=== PATIENT | female | born 1975 | race Caucasian/White ===

== ENCOUNTER 2019-05-23 01:31 | Day surgery (SDC) | payer OTHER, SELFPAY ==
[2019-05-22 12:13] VITALS: BMI 33.9
--- NOTE | 2019-05-22 13:38 | P.HP_ITS ---
H&P: HPI History of Present Illness Chief complaint: missed AB Narrative: Radha Palma is a 44 year old female Who is in the 1st trimester with an incomplete AB. She has had serial HSG levels which [place] current no demonstrable normal . Risks and benefits of this procedure reviewed in full. She had all questions answered. 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] triamterene-hydrochlorothiazid 1 cap PO DAILY 05/22/19 05/22/19 History Allergies Allergy/AdvReac Type Severity Reaction Status Date / Time No Known Allergies Allergy Verified 05/22/19 12:14 Exam Const: General: no acute distress Eyes: General: appearance normal, both eyes and all related structures Neck: Neck: supple and no JVD Thyroid: thyroid normal Resp: Effort & Inspection: normal respiratory effort Auscultation: clear to auscultation bilaterally Cardio: Rate: regular rate Rhythm: regular rhythm GI: Inspection: non-distended GI Palp: Yes Soft to palpation, No Tenderness to palpation present (GI) and No Guarding due to palpation present (GI) Auscultation: normal bowel sounds : General: Yes bladder normal to palpation External Female Exam: normal external appearance Speculum Exam - Vagina: normal vaginal discharge and No vaginal bleeding Speculum Exam - Cervix: nontender Bimanual exam- vagina & uterus: bladder normal to palpation and No Cervical tenderness present OB/external & speculum: No vaginal bleeding Skin: General skin exam: no rashes or lesions noted Extrem: General: normal to inspection and no edema Psych: Mental Status: mental status grossly normal Affect: normal affect Assessment and Plan Additional Plan impression: 1St trimester missed AB Plan: Suction dilatation curettage
--- NOTE | 2019-05-23 06:47 | WPDHPUPDATE1 ---
History and Physical Update Update Date/Time: 05/23/19 06:47 History and Physical has been reviewed, including an updated exam of the patient. There are NO changes in the patient's condition. Risks, benefits, and alternatives have been discussed and questions answered. Patient agrees to proceed with procedure.
[2019-05-23 08:34] VITALS: BP 137/85; PULSE 76; RESP 18; TEMP 36.4; O2SAT 100
[2019-05-23] MEDS: LACTATED RINGERS 1,000 ML 30 ML IV CONT (09:20)
[2019-05-23 09:41] LABS: Blood Urea Nitrogen 15 mg/dL (7-17); Calcium 9.1 mg/dL (8.4-10.2); Carbon Dioxide 24 mmol/L (22-30); Chloride 102 mmol/L (98-107); Estimated CRCL calculation 152 ml/min; Estimated Glomerular Filt Rate > 60; Glucose 98 mg/dL (65-105); Potassium 3.9 mmol/L (3.4-5.0); Sodium 135 mmol/L (137-145)
--- NOTE | 2019-05-23 09:46 | P.PNAN_ITS ---
Anes - Initial Pre Proc Eval Procedure: Operation Date: 05/23/19 10:15 Proposed Procedures p Suction Dilatation and Curettage - Otoniel Honeycutt MD Date/Time: 05/23/19 09:46 Surgeon: Otoniel Honeycutt MD Pre Op Diagnosis: missed AB Patient Data Age: 44 Gender: F Height: 5 ft 8 in Weight: 102.9 kg Last Vital Signs Temp 97.6 F 05/23/19 08:34 Pulse 76 05/23/19 08:34 Resp 18 05/23/19 08:34 BP 137/85 05/23/19 08:34 Pulse Ox 100 05/23/19 08:34 Allergies Allergy/AdvReac Type Severity Reaction Status Date / Time No Known Allergies Allergy Verified 05/22/19 12:14 Home Medications Medication Instructions Recorded Confirmed Type no.15-bzut-LD-dha 1 cap PO DAILY 05/22/19 05/22/19 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] triamterene-hydrochlorothiazid 1 cap PO DAILY 05/22/19 05/22/19 History hydrocodone-acetaminophen [Dupuyer] 1 tablet PO Q4H PRN #20 tablet 05/23/19 Rx Laboratory Tests 05/23/19 08:58 Sodium 135 mmol/L L mmol/L (137-145) Potassium 3.9 mmol/L mmol/L (3.4-5.0) Chloride 102 mmol/L mmol/L (98-107) Carbon Dioxide 24 mmol/L mmol/L (22-30) BUN 15 mg/dL mg/dL (7-17) Creatinine 0.50 mg/dL L mg/dL (0.7-1.0) Estim Creat Clear Calc 152 ml/min ml/min Estimated GFR > 60 (59 - ) Glucose 98 mg/dL mg/dL (65-105) Calcium 9.1 mg/dL mg/dL (8.4-10.2) Patient hx anesthesia problems: none Family hx anesthesia problems: none [facility] Past Medical History Medical History (Updated 05/23/19 @ 09:24 by Sergio Barcenas MD) Obesity Anes - Eval Final PreProcedure Day of Procedure 05/23/19 09:46 Patient weight: obese Heart: regular rate and rhythm Lungs: clear to auscultation Airway: Mallampati scale class II Neurological: alert and oriented Last oral intake: >/= 8 hours ASA classification: II Emergent: no Anesthetic plan: proceed Anesthesia type and monitoring: general GIVS and standard monitoring Informed Consent: The patient's anesthetic plan and its attendant risks and benefits were discussed with the patient/family/POA. Questions were solicited and answers provided to the satisfaction of the patient/family/POA.
[2019-05-23] MEDS: KETOROLAC 30 MG/ML VIAL (*BKC) IV PUSH (10:00)
--- NOTE | 2019-05-23 10:09 | SUR.OPER ---
ebl=50ml
[2019-05-23 10:16] VITALS: BP 127/65; PULSE 73; RESP 15; TEMP 36.4; O2SAT 97
--- NOTE | 2019-05-23 10:24 | PM.PROC ---
Procedure Note - Detailed Date of procedure: 05/23/19 Pre-op diagnosis: missed AB Surgeon: Otoniel Honeycutt MD Postop diagnosis: Missed AB Procedure: Suction dilatation curettage EBL: 25cc Findings: Products of conception Complications: None Description of the procedure: The patient was prepped and draped in the normal sterile fashion and placed in the dorsal lithotomy position. Under excellent IV sedation weighted speculum placed in posterior fornix of vagina. Anterior lip of the cervix grasped with single-tooth tenaculum. 2.5cc of 1% xylocaine anesthesia placed at 2, 4, 6, 8, of the cervix. The uterus sounded to 10cm. Serial dilatation with fragmented out performed. This was followed by passes the 9. Suction curette removing a moderate small amount of tissue. When a good grating sound was heard. There were none no further tissue could be removed. The instruments removed. All sponge, needle, instrument counts were correct. There were no immediate complications. The patient went to recovery in satisfactory condition
[2019-05-23 10:45] VITALS: BP 117/73; PULSE 65; RESP 16
[2019-05-23 11:15] VITALS: BP 127/81; PULSE 73; RESP 18
[2019-05-23 11:29] VITALS: BP 136/85; PULSE 74; RESP 16; TEMP 36.7; O2SAT 99
== END 2019-05-23 11:35 | disposition home or self-care (01) ==
PROVIDERS: Anesthesiology; Visit Provider Obstetrics & Gynecology
PROC: (CPT 59820; principal; 2019-05-23 10:15)
DX: O02.1 Missed abortion (principal)
CPT/HCPCS: 59820; 36415; 80048; 86850; 86900; 86901; 88305; 90384; A9270; J0131; J1100; J1885; J2250; J2405; J2704; J2790; J3010; J7120

== ENCOUNTER 2020-04-09 11:46 | Outpatient (CLI) | payer OTHER, SELFPAY ==
--- NOTE | ~2020-04-09 | XR_ITS ---
XR lumbar spine 2-3V DATE: 04/09/2020 12:13 INDICATION: Chronic low back pain TECHNIQUE: AP, lateral, coned lateral lumbosacral views COMPARISON: None FINDINGS: There is mild dextro scoliosis of the lumbar spine. No fracture or bone destruction or spondylolisthesis. The included lower thoracic and lumbar pedicles are intact. There is prominent degenerative spurring in the lower thoracic spine and to a lesser extent the lumba r spine. Degenerative disc disease is most pronounced at the L3-4 and L4-5 levels on the left. The sacroiliac joints appear normal. IMPRESSION: Mild dextro scoliosis Degenerative changes of the lower thoracic and lumbar spine Reviewed, dictated and finalized at location A. 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
== END 2020-04-09 11:47 | disposition home or self-care (01) ==
LOC: ANHIMG 11:53
PROVIDERS: Visit Provider Chiropractor
DX: M51.34 Other intervertebral disc degeneration, thoracic region (principal); M51.36 Other intervertebral disc degeneration, lumbar region
CPT/HCPCS: 72100

== ENCOUNTER 2021-01-25 09:28 | Outpatient (CLI) | payer OTHER, SELFPAY ==
--- NOTE | ~2021-01-25 | MM_ITS ---
EXAMINATION: MM screening winifred BI w betty HISTORY: Screening mammogram TECHNIQUE: Craniocaudal and mediolateral oblique 3-D tomosynthesis images were obtained and synthetic 2-D images were generated. CAD analysis was submitted and interpreted. COMPARISON: None, baseline BREAST PARENCHYMAL COMPOSITION: There are scattered areas of fibroglandular density. FINDINGS: RIGHT BREAST: There is focal asymmetry in the anterior third of the slightly outer breast. LEFT BREAST: There is no evidence of suspicious mass, calcification, or architectural distortion to s uggest malignancy. IMPRESSION: 1. Right breast focal asymmetry. 2. Additional mammographic views and possible breast ultrasound are recommended to evaluate for malig petra and establish a baseline given that this is the first mammographic examination. BI-RADS Category 0: Incomplete: Needs additional imaging evaluation. Reviewed, dictated and finalized at location A. SPINNER IMPRESSION: 1. Right breast focal asymmetry. 2. Additional mammographic views and possible breast ultrasound are recommended to evaluate for malignancy and establish a baseline given that this is the fir st mammographic examination. BI-RADS Category 0: Incomplete: Needs additional imaging evaluation.
== END 2021-01-25 09:29 | disposition home or self-care (01) ==
LOC: ANHIMG 09:30
PROVIDERS: Visit Provider Obstetrics & Gynecology
DX: Z12.31 Encounter for screening mammogram for malignant neoplasm of breast (principal); R92.8 Other abnormal and inconclusive findings on diagnostic imaging of breast
CPT/HCPCS: 77063; 77067

== ENCOUNTER 2021-02-15 12:14 | Outpatient (CLI) | payer OTHER, SELFPAY ==
--- NOTE | ~2021-02-15 | MMUS_ITS ---
EXAMINATION: MM diagnostic winifred RT w betty, US breast RT limited HISTORY: Focal asymmetry of the right breast on screening mammogram TECHNIQUE: Additional 3-D tomosynthesis images of the right breast were performed and synthetic 2-D i mages were generated. CAD analysis was submitted and interpreted. High resolution limited right breas t ultrasound was performed. COMPARISON: 01/25/2021 FINDINGS: MAMMOGRAPHIC FINDINGS: There is persistent focal asymmetry in the anterior third of the slightly outer breast. No suspicious mass, calcification, or architectural distortion are identified. ULTRASOUND: There is no evidence of focal abnormal solid or cystic mass in the vicinity of the mammographic findi ng in question. IMPRESSION: 1. Probably benign focal asymmetry right breast. 2. Recommend 6 month follow-up right diagnostic mammogram and possible ultrasound. BI-RADS category 3, probably benign findings. Reviewed, dictated and finalized at location A. 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 Probably benign focal asymmetry right breast. 2. Recommend 6 month follow-up right diagnostic mammogram and possible ultrasou nd. BI-RADS category 3, probably benign findings.
== END 2021-02-15 12:15 | disposition home or self-care (01) ==
PROVIDERS: Visit Provider Obstetrics & Gynecology
DX: R92.8 Other abnormal and inconclusive findings on diagnostic imaging of breast (principal)
CPT/HCPCS: 76642; 77061; 77065; G0279

== ENCOUNTER 2021-10-20 11:19 | Outpatient (CLI) | payer OTHER, SELFPAY ==
--- NOTE | ~2021-10-20 | MMUS_ITS ---
EXAMINATION: MM diagnostic winifred RT w betty, US breast RT limited HISTORY: Six-month follow-up of probably benign focal asymmetry of right breast TECHNIQUE: ML, MLO and CC 3-D tomosynthesis images of the right breast were performed and synthetic 2 -D images were generated. CAD analysis was submitted and interpreted. High resolution upper outer and lower-outer quadrant and subareolar right breast ultrasound was performed. COMPARISON: 02/15/2021 diagnostic right mammogram and limited right breast ultrasound 01/25/2021 bilateral screening mammogram BREAST PARENCHYMAL COMPOSITION: There are scattered areas of fibroglandular density. FINDINGS: MAMMOGRAPHIC FINDINGS: No interval suspicious mass, architectural distortion, malignant calcification, skin thickening or re traction or significant new or developing density is noted since 01/25/2021. ULTRASOUND: No suspicious mass or shadowing or other significant sonographic finding is noted in the upper and lo wer outer quadrants or subareolar area. IMPRESSION: 1. No mammographic evidence of malignancy 2. Routine mammographic screening is recommended BI-RADS Category 1: Negative Reviewed, dictated and finalized at location A. IMPRESSION: 1. No mammographic evidence of malignancy 2. Routine mammographic screening is recommended BI-RADS Category 1: Negative
== END 2021-10-20 11:20 | disposition home or self-care (01) ==
LOC: ANHIMG 11:20
PROVIDERS: Visit Provider Obstetrics & Gynecology
DX: R92.8 Other abnormal and inconclusive findings on diagnostic imaging of breast (principal)
CPT/HCPCS: 76642; 77061; 77065; G0279

== ENCOUNTER 2023-02-19 14:51 | Outpatient (CLI) | payer OTHER, SELFPAY ==
--- NOTE | ~2023-02-19 | MM_ITS ---
EXAMINATION: MM screening winifred BI w betty HISTORY: Screening mammogram TECHNIQUE: Craniocaudal and mediolateral oblique 3-D tomosynthesis images were obtained and synthetic 2-D images were generated. CAD analysis was submitted and interpreted. COMPARISON: 10/20/2021 diagnostic right mammogram and limited right breast ultrasound examination 02/15/2021 diagnostic right mammogram and limited right breast ultrasound 01/25/2021 bilateral screening mammogram BREAST PARENCHYMAL COMPOSITION: There are scattered areas of fibroglandular density. FINDINGS: There is no evidence of suspicious mass, calcification, or architectural distortion to sugg est malignancy in either breast. There has been no suspicious interval change. IMPRESSION: 1. No mammographic evidence of malignancy. 2. Recommend routine screening mammography in one year. BI-RADS Category 1: Negative Reviewed, dictated and finalized at location A. 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
== END 2023-02-19 14:52 | disposition home or self-care (01) ==
LOC: ANHIMG 14:56
PROVIDERS: Visit Provider Obstetrics & Gynecology
DX: Z12.31 Encounter for screening mammogram for malignant neoplasm of breast (principal)
CPT/HCPCS: 77063; 77067

== ENCOUNTER 2024-04-11 14:11 | Outpatient (CLI) | payer OTHER, SELFPAY ==
--- NOTE | ~2024-04-11 | MM_ITS ---
EXAMINATION: MM screening winifred BI w betty HISTORY: Screening TECHNIQUE: Craniocaudal and mediolateral oblique 3-D tomosynthesis images were obtained and synthetic 2-D images were generated. CAD analysis was submitted and interpreted. COMPARISON: Comparison to multiple prior studies sequentially, with oldest reviewed study dated 01/04. BREAST PARENCHYMAL COMPOSITION: Not dense: There are scattered areas of fibroglandular density. FINDINGS: There is no evidence of suspicious mass, calcification, or architectural distortion to sugg est malignancy in either breast. There has been no suspicious interval change. IMPRESSION: 1. No mammographic evidence of malignancy. 2. Recommend routine screening mammography in one year. BI-RADS Category 1: Negative Reviewed, dictated and finalized at location B. LABORER
--- OUTSIDE RECORDS SUMMARY | 2024-04-11 14:17 | XMS_ITS | Encounter Summary ---
[facility] Organization [facility] Address 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
--- OUTSIDE RECORDS SUMMARY | 2024-04-11 14:17 | XMS_ITS | Patient Health Summary ---
Author Organization [facility] Address [address] [facility] [address] [place] [address] Care Team Providers Care Turbo Operator Name Role Phone Rizwan Forbes MD Primary Care Provider + Note from [facility],non-owned Affiliates and Associated Physician Practices is amultiple site organization consisting of ambulatory clinics and hospital sitesin [place], [place], [place]. This disclosure is being madepursuant to the Care Everywhere program and may not contain all information available regarding this patient. Last updated 17.[facility] [employer] Allergies No known active allergies Medications * Be aware that medications may not be up to date on this document. Alwaysverify current medications with the patient. * albuterol HFA (ProAir HFA) 108 (90 Base) MCG/ACT inhaler(Started 08/04/2023) Inhale 2 (two) puffs by mouth every 4 hours as needed * benzonatate (Tessalon) 100 MG capsule(Started 08/04/2023) Take 1 (one) capsule by mouth 3 times daily as needed for Cough * hydrOXYzine HCl (Atarax) 25 MG tablet(Started 08/04/2023) Take 1 (one) tablet by mouth 4 times daily as needed for Itching Social History Tobacco Use Types Packs/Day Years Used Date Smoking Tobacco: Never Assessed Sex and Gender Information Value Date Recorded Sex Assigned at Not on file Gender Identity Not on file Sexual Orientation Not on file Last Filed Vital Signs Vital Sign Reading Time Taken Comments Blood Pressure 107/53 08/04/2023 2:00 PM CDT Pulse 79 08/04/2023 1:43 PM CDT Temperature 36.8 C (98.2 F) 08/04/2023 10:43 AM CDT Respiratory Rate 20 08/04/2023 1:43 PM CDT Oxygen Saturation 95% 08/04/2023 3:01 PM CDT Inhaled Oxygen Concentration - - Weight 108.9 kg (240 lb) 08/04/2023 11:10 AM CDT Height 172.7 cm (5' 8 ) 08/04/2023 10:43 AM CDT Body Mass Index 36.49 08/04/2023 10:43 AM CDT Procedures * CARDIAC EKG ORDER(Performed 08/06/2023) * START ED RT BRONCHODILATOR PROTOCOL(Performed 08/04/2023) * EKG 12-LEAD(Performed 08/04/2023) Performed for Acute cough * XR CHEST 1VW PORTABLE(Performed 08/04/2023) Performed for Acute cough * PT-INR(Performed 08/04/2023) * B-TYPE NATRIURETIC PEPTIDE(Performed 08/04/2023) * HCG BLOOD QUALITATIVE(Performed 08/04/2023) * CBC W AUTO DIFFERENTIAL(Performed 08/04/2023) * COMPREHENSIVE METABOLIC PANEL(Performed 08/04/2023) Results * CARDIAC EKG ORDER (08/06/2023 5:43 PM CDT) Narrative 08/06/2023 5:43 PM CDT Ordered by an unspecified provider. Scanned Document CARDIAC SERVICES ORD ERABLES * EKG 12-LEAD (08/04/2023 12:53 PM CDT) Ventricular Rate 77 BPM [facility] Atrial Rate 77 BPM [facility] P-R Interval 156 ms [facility] QRS Duration ms 106 ms [facility] Q-T Interval ms 374 ms [facility] QTC Calculation (Bezet) 423 ms [facility] Calculated P [place] 54 degrees [facility] Calculated R [place] -10 degrees [facility] Calculated T [place] 2 degrees [facility] Interpretation EKG Normal sinus rhythm Normal ECG No previous ECGs available Confirmed by MYNOR BURRIS MD ([id number]) on 08/06/2023 10:06:16 AM [facility] 08/04/2023 12:5 3 PM CDT 08/06/2023 10:06 AM CDT Agata A Baebler PA-C ECG ORDERABLES [facility] * XR CHEST 1VW PORTABLE (08/04/2023 12:17 PM CDT) Anatomical Region Laterality Modality Chest Radiographic Pili ging 08/04/2023 1:03 PM CDT Impressions 08/04/2023 1:04 PM CDT IMPRESSION: No acute cardiopulmonary abnormalities. > Interpreting Provider: Alo Holman MD on 08/04/2023 1:04 PM Narrative 08/04/2023 1:04 PM CDT PROCEDURE: XR CHEST 1VW PORTABLE DATE/TIME OF EXAM: 08/04/2023 12:17 PM CLINICAL INFORMATION: None relevant/not provided if blank. Indication: R05.1: Acute cough Additional History: COMPARISON: None. FINDINGS: Single frontal view of the chest demonstrates a normal sized heart and pulmonary vasculature. No focal consolidation, pleural effusion or pneumothorax. No acute osseous abnormalities. Procedure Note Alo Holman MD - 08/04/2023 PROCEDURE: XR CHEST 1VW PORTABLE DATE/TIME OF EXAM: 08/04/2023 12:17 PM CLINICAL INFORMATION: None relevant/not provided if blank. Indication: R05.1: Acute cough Additional History: COMPARISON: None. FINDINGS: Single frontal view of the chest demonstrates a normal sized heart and pulmonary vasculature. No focal consolidation, pleural effusion or pneumothorax. No acute osseous abnormalities. IMPRESSION: No acute cardiopulmonary abnormalities. > Interpreting Provider: Alo Holman MD on 08/04/2023 1:04 PM Agata Milan PA-C DIAGNOSTIC IMAGING ORDERABLES * PT-INR (08/04/2023 12:07 PM CDT) PT 13.6 12.1 - 14.8 sec 08/04/2023 12:24 PM CDT [facility] INR 1.0 0.9 - 1.1 08/04/2023 12:24 PM CDT [facility] Blood BLOOD SPECIMEN / Unknown Venipuncture / Unknown 08/04/2023 12:07 PM CDT 08/04/2023 12:11 PM CDT Narrative [facility] - 08/04/2023 12:24 PM CDT Conventional Warfarin Anticoagulant Therapy: INR Reference Range: 2.0-3.0 Intensive Warfarin Anticoagulant Therapy: INR Reference Range: 2.5-3.5 Agata Milan PA-C LAB - COAGULATION ORDERABLES Performing Organization Address [facility]/ZIP Co de Phone Number [facility] [address] [place] [address] * B-TYPE NATRIURETIC PEPTIDE (08/04/2023 12:07 PM CDT) BNP 37 <=100 pg/mL 08/04/2023 12:35 PM CDT [facility] Blood BLOOD SPECIMEN / Unknown Venipuncture / Unknown 08/04/2023 12:07 PM CDT 08/04/2023 12:11 PM CDT Agata Milan PA-C LAB - CHEMISTRY OR DERABLES Performing Organization Address [facility]/ZIP Co de Phone Number [facility] [address] [place] [address] * (ABNORMAL) CBC W AUTO DIFFERENTIAL (08/04/2023 11:42 AM CDT) Pathologist [facility] WBC 12.9(H) 4.0 - 10.7 x10E9/L 08/04/2023 11:48 AM CDT [facility] RBC Count 4.00 3.90 - 5.20 x10E12/L 08/04/2023 11:48 AM CDT [facility] Hemoglobin 11.9 11.9 - 15.8 g/dL 08/04/2023 11:48 AM CDT [facility] Hematocrit 36.0 34.8 - 46.1 % 08/04/2023 11:48 AM CDT [facility] MCV 90.0 80.0 - 98.0 fL 08/04/2023 11:48 AM CDT [facility] MCH 29.8 26.7 - 33.6 pg 08/04/2023 11:48 AM CDT [facility] MCHC 33.1 31.7 - 36.3 g/dL 08/04/2023 11:48 AM CDT [facility] RDW-CV 13.1 11.3 - 14.8 % 08/04/2023 11:48 AM CDT [facility] Platelet Count 231 150 - 420 x10E9/L 08/04/2023 11:48 AM CDT [facility] MPV 9.2 7.8 - 11.4 fL 08/04/2023 11:48 AM CDT [facility] Neutrophil % 76.2(H) 41.0 - 74.0 % 08/04/2023 11:48 AM [facility] Lymphocyte % 9.4(L) 17.0 - 47.0 % 08/04/2023 11:48 AM CDT [facility] Monocyte % 4.6 3.0 - 11.0 % 08/04/2023 11:48 AM CDT [facility] Eosinophil % 9.1(H) 0.0 - 7.0 % 08/04/2023 11:48 AM [facility] Basophil % 0.2 0.0 - 1.6 % 08/04/2023 11:48 AM [facility] Immature Granulocytes % 0.5 0.0 - 1.0 % 08/04/2023 11:48 AM CDT [facility] Neutrophil Absolute 9.85(H) 1.60 - 7.50 x10E9/L 08/04/2023 11:48 AM CDT [facility] Lymphocyte Absolute 1.22 1.00 - 4.40 x10E9/L 08/04/2023 11:48 AM [facility] Monocyte Absolute 0.59 0.15 - 1.00 x10E9/L 08/04/2023 11:48 AM [facility] Eosinophil Absolute 1.18(H) 0.00 - 0.60 x10E9/L 08/04/2023 11:48 AM CDT [facility] Basophil Absolute 0.03 0.00 - 0.13 x10E9/L 08/04/2023 11:48 AM [facility] Blood BLOOD SPECIMEN / Unknown Venipuncture / Unknown 08/04/2023 11:42 AM CDT 08/04/2023 11:45 AM CDT Agata Milan PA-C LAB - HEMATOLOGY O RDERABLES [facility] [address] [place] [address] * (ABNORMAL) COMPREHENSIVE METABOLIC PANEL (08/04/2023 11:42 AM CDT) Glucose 122(H) 70 - 105 mg/dL 08/04/2023 12:05 PM [facility] Sodium 138 136 - 145 mmol/L 08/04/2023 12:05 PM [facility] Potassium 3.5 3.5 - 5.1 mmol/L 08/04/2023 12:05 PM [facility] Chloride 102 98 - 107 mmol/L 08/04/2023 12:05 PM [facility] CO2 24 22 - 29 mmol/L 08/04/2023 12:05 PM [facility] Calcium 8.5 8.4 - 10.4 mg/dL 08/04/2023 12:05 PM [facility] Anion Gap 12 6 - 16 mmol/L 08/04/2023 12:05 PM [facility] BUN 15 5.3 - 18.7 mg/dL 08/04/2023 12:05 PM [facility] Creatinine 0.80 0.57 - 1.11 mg/dL 08/04/2023 12:05 PM [facility] Alkaline Phosphatase 83 40 - 150 U/L 08/04/2023 12:05 PM [facility] ALT 40 0 - 55 U/L 08/04/2023 12:05 PM [facility] AST 37(H) 5 - 34 U/L 08/04/2023 12:05 PM [facility] Protein Total 5.6(L) 6.4 - 8.3 gm/dL 08/04/2023 12:05 PM [facility] Albumin 2.8(L) 3.4 - 5.0 gm/dL 08/04/2023 12:05 PM [facility] Bilirubin Total 0.9 0.2 - 1.2 mg/dL 08/04/2023 12:05 PM [facility] eGFR by CKD-EPI >90 >=90 mL/min/1.7 3 m2 08/04/2023 12:05 PM CDT [facility] Blood BLOOD SPECIMEN / Unknown Venipuncture / Unknown 08/04/2023 11:42 AM CDT 08/04/2023 11:45 AM CDT Agata Milan PA-C LAB - CHEMISTRY OR DERABLES Performing Organization Address [facility] Co de Phone Number [facility] [address] [place] [address] * HCG BLOOD QUALITATIVE (08/04/2023 11:42 AM CDT) HCG Qual Serum Negative Negative 08/04/2023 11:57 AM CDT [facility] Blood BLOOD SPECIMEN / Unknown Venipuncture / Unknown 08/04/2023 11:42 AM CDT 08/04/2023 11:45 AM CDT Narrative [facility] - 08/04/2023 11:57 AM CDT Specimens containing human anti-mouse antibodies may exhibit false positive or false negative results. If qualitative interpretation is inconsistent with clinical evaluation, consider confirmation by an alternative hCG method. Agata Milan PA-C LAB - CHEMISTRY OR DERABLES Performing Organization Address [facility] Co de Phone Number [facility] [address] [place] [address] Care Teams Turbo Operator Relationship Specialty Start Date End Date Rizwan Forbes MD [address] [place] [address] DR Michelle JOHNSON [address] [place] [id number] PCP - General Internal Medicine 08/03/23
--- OUTSIDE RECORDS SUMMARY | 2024-04-11 14:17 | XMS_ITS | Clinical Summary ---
Author Organization [facility] Address [address] [place] [address] Care Team Providers Care Field Spec Name Role Phone Rizwan Forbes MD Primary Care Provider + Source Comments [facility],non-owned Affiliates and Associated Physician Practices is amultiple site organization consisting of ambulatory clinics and hospital sitesin [place], [place], [place] and [place]. This disclosure is being madepursuant to the Care Everywhere program and may not contain all information available regarding this patient. Last updated 17.[facility] Allergies No known active allergies Medications * Be aware that medications may not be up to date on this document. Alwaysverify current medications with the patient. Medication Sig Dispensed Refills Start Date End Date Status albuterol HFA (ProAir HFA) 108 (90 Base) MCG/ACT inhaler Inhale 2 (two) puffs by mouth every 4 hours as needed 8.5 g 08/04/2023 Active benzonatate (Tessalon) 100 MG capsule Take 1 (one) capsule by mouth 3 times daily as needed for Cough 20 capsule 08/04/2023 Active hydrOXYzine HCl (Atarax) 25 MG tablet Take 1 (one) tablet by mouth 4 times daily as needed for Itching 30 tablet 08/04/2023 Active Social History Tobacco Use Types Packs/Day Years [...] Mass Index 36.49 08/04/2023 10:43 AM CDT Plan of Treatment Health Maintenance Due Date Last Done Comments COLOGUARD (AGES 45-75) - COL ON CA SCREENING [address] COLONOGRAPHY - COLON CA SCREENING 1976 FIT - COLON CA SCREENING 1976 FLEX SIG - COLON CA SCREENING 1976 LIPID TESTING 1976 MAMMOGRAM 1976 PAP SMEAR 1976 HIV SCREENING 01/19/1991 HEPATITIS C SCREENING 01/15/1994 DTAP/TDAP/TD VACCINES (1 - Tdap) 01/19/1995 HEPATITIS B VACCINE (1 of 3 - 19+ 3-dose series) 01/19/1995 COVID-19 VACCINE (4 - 2023-2 5 season) 2023 07/25/2021, 04/23/2020, 04/02/2020 INFLUENZA VACCINE (#1) 2023 DEPRESSION SCREENING 03/05/2024 ZOSTER VACCINE (1 of 2) 01/19/2026 COLONOSCOPY - COLON CA SCREENING 02/07/2033 02/07/2023 Colorectal Cancer Screening 02/07/2033 HIB VACCINE Aged Out No longer eligi ble based on patient's age to complete this topic HPV VACCINE Aged Out No longer eligi ble based on patient's age to complete this topic MENINGOCOCCAL (Group B) VACCINE Aged Out No longer eligible b ased on patient's age to complete this topic MENINGOCOCCAL VACCINE Aged Out No luanne garry eligible based on patient's age to complete this topic PNEUMOCOCCAL VACCINE Aged Out No long er eligible based on patient's age to complete this topic Care Teams Field Spec Relationship Specialty Start Date End Date Rizwan Forbes MD [facility] [place] [address] PCP - General Internal Medicine 08/03/23
--- OUTSIDE RECORDS SUMMARY | 2024-04-11 14:17 | XMS_ITS | Encounter Summary ---
Author Organization [facility] Address 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
--- OUTSIDE RECORDS SUMMARY | 2024-04-11 14:17 | XMS_ITS | Referral Summary ---
Author Organization [facility] Address [address] [place] [address] Care Team Providers Care Golf Stud Riveter Name Role Phone Rizwan Forbes MD Primary Care Provider + Source Comments [facility],non-owned Affiliates and Associated Physician Practices is amultiple site organization consisting of ambulatory clinics and hospital sitesin [place], [place], [place] and [place]. This disclosure is being madepursuant to the Care Everywhere program and may not contain all information available regarding this patient. Last updated 17.[facility] Allergies No known active allergies Medications * [...] 08/04/2023 10:43 AM CDT Plan of Treatment Not on file Care Teams Golf Stud Riveter Relationship Specialty Start Date End Date Rizwan Forbes MD [facility] [address] PCP - General Internal Medicine 08/03/23
--- OUTSIDE RECORDS SUMMARY | 2024-04-11 14:17 | XMS_ITS | Clinical Summary ---
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 Gender Identity Not on file Sexual Orientation Not on file Plan of Treatment Health Maintenance Due Date Last Done Comments DTAP/TDAP/TD VACCINES (1 - Tdap) 01/19/1995 HEPATITIS B VACCINES (1 of 3 - 19+ 3-dose series) 01/19/1995 CERVICAL CANCER SCREENING 01/19/2006 BREAST CANCER SCREENING 2016 COLORECTAL SCREENING 01/19/2021 Colorectal Cancer Screening 01/19/2021 FIT-DNA Q 3 years 01/19/2021 FIT/FOBT Q 1 year 01/19/2021 Flex Sig/CT Colonography Q 5 years 01/19/2021 INFLUENZA VACCINE (#1) 2023 PNEUMOCOCCAL VACCINE 0-64 YEARS Aged Out No longer eligible based on patient's age to complete this topic Insurance [facility] [place] [id number] Care Teams Brewery Technician Relationship Specialty Start Date End Date Ronaldo Christine MD [address] [address] [place] [address] PCP - General 11/12/04
--- OUTSIDE RECORDS SUMMARY | 2024-04-11 14:17 | XMS_ITS | Continuity of Care Document ---
Author Name [facility] Address [address] [place] [address] Organization [facility] Care Team Providers Care Retail Asset Protection Specialist Name Role Phone [facility] Unavailable Unavailable Problems Problem Status Onset Date Problem Type Date of Resolution Comme nts Source Allergic disposition (disorder) 08/02/2023 Diagnosis Bite of nonvenomous arthropod (finding) 08/02/2023 Diagnosis Problem Condition Fever, unspecified Active Diagnosis Insect bite, nonvenomous, of upper arm (disorder) Diagnosis Exposure to potentially harmful entity (event) Diagnosis Results Order Name Results Value Reference Range Date Interpretation Comments Source GENERAL CHEMISTRY T Bili 1.09 mg/dL 0.20 - 1.20 08/01 15:26 :00 [facility] GENERAL CHEMISTRY Anion gap 6 mmol/L 5 - 15 08/01 15:26 :00 [facility] GENERAL CHEMISTRY Potassium 3.1 mmol/L 3.5 - 5.1 08/01 15:26 :00 [facility] GENERAL CHEMISTRY Sodium 136 mmol/L 136 - 145 08/01 15:26 :00 [facility] GENERAL CHEMISTRY Chloride 102 mmol/L 98 - 109 08/01 15:26 :00 [facility] GENERAL CHEMISTRY CO2 28 mmol/L 20 - 31 08/01 15:26 :00 [facility] GENERAL CHEMISTRY Glucose Lvl 108 mg/dL 08/01 15:26 :00 Interpretive Data: No reference ranges have been established for random glucose levels. [facility] GENERAL CHEMISTRY AST-SGOT 19 U/L 0 - 34 08/01 15:26 :00 [facility] GENERAL CHEMISTRY ALT-SGPT 18 U/L 10 - 49 08/01 15:26 :00 [facility] GENERAL CHEMISTRY Alkaline Phosphatase 72 U/L 46 - 116 08/01 15:26 :00 [facility] GENERAL CHEMISTRY Total Protein 5.8 g/dL 5.7 - 8.2 08/01 15:26 :00 [facility] GENERAL CHEMISTRY Albumin 3.7 g/dL 3.2 - 4.8 08/01 15:26 :00 [facility] GENERAL CHEMISTRY BUN 14 mg/dL 9 - 08/01 15:26 :00 [facility] GENERAL CHEMISTRY Creatinine, standardized 0.84 mg/dL 0.55 - 1.02 08/01 15:26 :00 [facility] GENERAL CHEMISTRY Calcium 8.5 mg/dL 8.3 - 10.6 08/01 15:26 :00 [facility] GENERAL CHEMISTRY GFR for >60 mL/min 08/01 15:26 :00 Interpretive Data: For all ethnicities, normal kidney function is indicated by a value of >60 mL/min/1.73 square meters in patents between 18 and 70 years of age. [facility] GENERAL CHEMISTRY GFR non >60 mL/min 08/01 15:26 :00 Interpretive Data: The eGFR was estimated using the IDDC-traceabl e MDRD Study equation. National Kidney Foundation: K/DOQI clinical practice guidelines for chronic kidney disease: Evaluation, classificatio n and stratificatio n. Am J Kidney Dis 2002; 39(Suppl 1):S1. [facility] HEMATOLOGY PROFILES WBC 14.01 x10(9) /L 4.80 - 10.80 08/01 15:26 :00 [facility] HEMATOLOGY PROFILES RBC 4.18 x10(12 )/L 4.20 - 5.00 08/01 15:26 :00 [facility] HEMATOLOGY PROFILES HGB 12.4 g/dL 12.0 - 16.0 08/01 15:26 :00 [facility] HEMATOLOGY PROFILES HCT 37.8 % 34.5 - 47.0 08/01 15:26 :00 [facility] HEMATOLOGY PROFILES MCV 90.4 fL 81.0 - 96.5 08/01 15:26 :00 [facility] HEMATOLOGY PROFILES MCH 29.7 pg 28.0 - 33.0 08/01 15:26 :00 [facility] HEMATOLOGY PROFILES MCHC 32.8 g/dL 30.4 - 36.7 08/01 15:26 :00 [facility] HEMATOLOGY PROFILES RDW CV 13.2 % 11.5 - 14.5 08/01 15:26 :00 [facility] HEMATOLOGY PROFILES PLT 240 x10(9) /L 135 - 400 08/01 15:26 :00 [facility] HEMATOLOGY PROFILES MPV 9.8 fL 9.0 - 12.0 08/01 15:26 :00 [facility] HEMATOLOGY PROFILES % Neutrophils 82.4 % 08/01 15:26 :00 [facility] HEMATOLOGY PROFILES Absolute Granulocytes 11.54 x10(9) /L 1.40 - 6.50 08/01 15:26 :00 [facility] HEMATOLOGY PROFILES % Immature Granulocytes 0.5 % 08/01 15:26 :00 [facility] HEMATOLOGY PROFILES Abs Immature Granulocytes 0.07 x10(9) /L 0.00 - 0.03 08/01 15:26 :00 [facility] HEMATOLOGY PROFILES % Lymphocytes 5.8 % 08/01 15:26 :00 [facility] HEMATOLOGY PROFILES Abs Lymphocytes 0.81 x10(9) /L 1.20 - 3.40 08/01 15:26 :00 [facility] HEMATOLOGY PROFILES % Monocytes 4.1 % 08/01 15:26 :00 [facility] HEMATOLOGY PROFILES Abs Monocytes 0.57 x10(9) /L 0.00 - 1.00 08/01 15:26 :00 [facility] HEMATOLOGY PROFILES % Eosinophils 7.1 % 08/01 15:26 :00 [facility] HEMATOLOGY PROFILES Abs Eosinophils 1.00 x10(9) /L 0.00 - 0.30 08/01 15:26 :00 [facility] HEMATOLOGY PROFILES % Basophils 0.1 % 08/01 15:26 :00 [facility] HEMATOLOGY PROFILES Abs Basophils 0.02 x10(9) /L 0.00 - 0.10 08/01 15:26 :00 [facility] Consultation Notes Results Value Date Source Emergency Services Note Basic Informatio n Chief Complaint Patient reports on steroids, then went in the sun. Reports spider bite sunday with fevers yesterday History of Present Illness 48-year-old female without pertinent past medical history presents to emergency department with chief complaint of allergic reaction as well as possible spider bite. Patient states that she started develop a rash to her face, trunk and upper extremities 3 days ago. 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 Patient states that her rash is increased causing her skin to be irritated and warm. Patient also states she believes she may have been bit by a spider under her left arm. States that she noticed area yesterday. States the area is very painful and does cause pain to radiate up into her arm and down into her back. She has not taken her temperature, however states that last night she felt very chilled. Review of Systems Constitutional: No fever. No chills. Skin:rash Eye: No visual problems ENT: No ear pain, sore throat, or nasal congestion. Resp: No cough. No SOA. No wheezing. CV: No chest pain. GI: No abdominal pain. No N/V/D. : No dysuria or hematuria. MSK: No back pain. Neuro: No headache. No numbness/tingling/weakness. Psych: No anxiety. All other systems reviewed and are otherwise negative. ROS reviewed as documented in chart. Physical Exam Vitals and Measurements T: 36.8 C HR: 84 RR: 27 BP: 125/58 SpO2: 100% WT: 112 kg General: Awake, alert and oriented. Appears stated age Skin: Erythematous grouped vascular blanching rash to upper extremities, trunk and face. Patient also has 2 cm x 2 cm deep area of induration with overlying cyanosis and erythematous of left axillary region. Head: Normocephalic and atraumatic Eyes: Conjunctiva are clear without exudates or hemorrhage. EOM intact, PERRLA. Ears: External ear and ear canal are nontender and without swelling. Nose: The nasal septum is midline. Neck: Trachea is midline. Cardiac: External chest is normal in appearance without lives, heaves or thrills. Heart rate and rhythm are normal. No murmurs, gallops, or rubs auscultated. Respiratory: Chest symmetric and without deformity. No signs of trauma.No signs of respiratory distress. Lung sounds are clear in all rubs bilaterally without rales, rhonchi or wheezes Abdominal: Abdomen is soft, symmetric and nontender without distention. Bowel sounds are present and normoactive. Extremities: No swelling or erythema. Full range of motion is noted. Neurologic: Patient is awake alert and orientated. Motor function is normal muscle strength 5 out of 5 bilaterally upper and lower extremities. Sensation is intact bilaterally. Psychiatric: Appropriate mood and affect. Good judgment and insight. No visual hallucinations. No suicidal or homicidal ideations Procedure Medical Decision Making Emergency department attending on shift: This is a 48-year-old female who presents to emergency department for 2 complaints. 1 being that she believes she was exposed to new chemicals at work and started having allergic reaction 2 days ago. Patient denies any anaphylactic signs or symptoms such as nausea, vomiting, shortness of breath, globus sensation. Differential diagnosis includes but is not limited to systemic versus localized reaction. Patient received bolus of normal saline, famotidine, Solu-Medrol, Benadryl, Toradol. Upon reevaluation she states she was feeling much better. Discussed diagnosis of localized reaction. Discuss symptomatic care at home. Patient also presents complaining of possible spider bite to left armpit. On exam patient does have deep area of induration with overlying erythematous. Do not believe that there is a full abscess developed, as well as it is deep within skin. Do not believe that I&D would be beneficial at this time. Will begin patient on antibiotics. Reexamination/Reevaluation Assessment/Plan 1. Allergic reaction Ordered: cephalexin, 500 mg = 1 Tablet(s), Oral, bid, X 10 day(s), # 20 Tablet(s), Refill(s) 0, 08/12/23 2. Insect bite Ordered: cephalexin, 500 mg = 1 Tablet(s), Oral, bid, X 10 day(s), # 20 Tablet(s), Refill(s) 0, 08/12/23 Orders: Insert PIV Patient Education Allergic Reaction Follow Up With When Contact Information [facility] [address] [place] [address]- [phone] Additional Instructions: Medication Reconciliation New Prescription cephalexin (cephalexin 500 mg oral tablet)1 tab(s) Oral Twice daily for 10 Days. Refills: 0. ED Forms Problem List/Past Medical History Ongoing No qualifying data Historical No qualifying data Procedure/Surgical History Medication Administration Given diphenhydrAMINE, 50 mg, IV Push famotidine, 20 mg, IV Push ketorolac, 15 mg, IV Push sodium chloride (bolus) 0.9%, 1000 mL, IV Bolus SOLU-Medrol, 125 mg, IV Push Allergies NKA Social History Family History Lab Results HEMATOLOGY PROFILES LATEST RESULTS WBC 08/02/23 10: 14.01 High RBC 08/02/23 10: 4.18 Low HGB 08/02/23 10: 12.4 HCT 08/02/23 10: 37.8 MCV 08/02/23 10: 90.4 MCH 08/02/23 10: 29.7 MCHC 08/02/23 10: 32.8 RDW CV 08/02/23 10: 13.2 PLT 08/02/23 10: 240 MPV 08/02/23 10: 9.8 % Neutrophils 08/02/23 10: 82.4 Absolute Granulocytes 08/02/23 10: 11.54 High % Immature Granulocytes 08/02/23 10: 0.5 Abs Immature Granulocytes 08/02/23 10: 0.07 High % Lymphocytes 08/02/23 10: 5.8 Abs Lymphocytes 08/02/23 10: 0.81 Low % Monocytes 08/02/23 10:26 4.1 Abs Monocytes 08/02/23 10:26 0.57 % Eosinophils 08/02/23 10:26 7.1 Abs Eosinophils 08/02/23 10:26 1.00 High % Basophils 08/02/23 10:26 0.1 Abs Basophils 08/02/23 10:26 0.02 GENERAL CHEMISTRY LATEST RESULTS Sodium 08/02/23 10:26 136 Potassium 08/02/23 10:26 3.1 Low Chloride 08/02/23 10:26 102 CO2 08/02/23 10:26 28 Anion gap 08/02/23 10:26 6 Glucose Lvl 08/02/23 10:26 108 BUN 08/02/23 10:26 14 Creatinine, standardized 08/02/23 10:26 0.84 GFR for 08/02/23 10:26 >60 GFR non 08/02/23 10:26 >60 Calcium 08/02/23 10:26 8.5 Total Protein 08/02/23 10:26 5.8 Albumin 08/02/23 10:26 3.7 T Bili 08/02/23 10:26 1.09 Alkaline Phosphatase 08/02/23 10:26 72 AST-SGOT 08/02/23 10:26 19 ALT-SGPT 08/02/23 10:26 18 Diagnostic Results ECG 08/02/2023 Vital Signs Vital Sign Value Date Comments Source Heart Rate 84 bpm 08/02/2023 15:30:00 [facility] Respiratory Rate 27 breaths/min 08/02/2023 15:30:00 [facility] SpO2 100 % 08/02/2023 15:30:00 [facility] Mean NIBP 84 mm[Hg] 08/02/2023 15:30:00 [facility] SBP NIBP 125 mm[Hg] 08/02/2023 15:30:00 [facility] DBP NIBP 58 mm[Hg] 08/02/2023 15:30:00 [facility] Heart Rate 85 bpm 08/02/2023 15:00:00 [facility] Respiratory Rate 16 breaths/min 08/02/2023 15:00:00 [facility] SpO2 100 % 08/02/2023 15:00:00 [facility] Mean NIBP 84 mm[Hg] 08/02/2023 15:00:00 [facility] SBP NIBP 127 mm[Hg] 08/02/2023 15:00:00 [facility] DBP NIBP 61 mm[Hg] 08/02/2023 15:00:00 [facility] Weight (kg) 112 kg 08/02/2023 14:31:00 [facility] SBP NIBP 138 mm[Hg] 08/02/2023 14:31:00 [facility] DBP NIBP 67 mm[Hg] 08/02/2023 14:31:00 [facility] Heart Rate 86 bpm 08/02/2023 14:31:00 [facility] Respiratory Rate 18 breaths/min 08/02/2023 14:31:00 [facility] SpO2 100 % 08/02/2023 14:31:00 [facility] Temperature (Celsius) 36.8 Kimberley 08/02/2023 14:31:00 [facility] Encounters Location Location Details Encounter Type Encounter Number Reason For Visit Attending Provider ADM Date DC Date Status Source JI1 JI1 Emergency [id number] ALLERGIC REACTION Rebeca Villasenor 08/01 09:24 :55 08/01 11:20 :00 Active [facility] Social History Social History Date Source No data available for this section 08/02/2023 [facility]
--- OUTSIDE RECORDS SUMMARY | 2024-04-11 14:17 | XMS_ITS | Clinical Summary ---
Author Organization [facility] Address [address] [place] [address] Care Team Providers Care Plumber Gasfitter Name Role Phone Cole Christensen MD Unavailable [phone] Rizwan Forbes MD Primary Care Provider + Allergies No known active allergies Medications furosemide (LASIX) 80 mg tabletIndicatio ns:Pitting edema Take 1 tablet (80 mg total) by mouth daily 90 tablet 01/02/2024 Active gabapentin (NEURONTIN) 300 mg capsule Take 1 capsule (300 mg total) by mouth 3 (three) times a day 270 capsule 3 01/02/2024 5 Active potassium chloride ER (KLOR-CON) 10 mEq CR tablet Take 1 tablet/capsu le (10 mEq total) by mouth daily 90 tablet/capsul e 3 01/07/2024 5 Active meloxicam (MOBIC) 15 mg tablet TAKE 1 TABLET(15 MG) BY MOUTH DAILY 90 tablet 03/04/2024 Active Active Problems Problem Noted Date Diagnosed Date Chronic low back pain 01/02/2024 Assessment & Plan (01/02/2024 4:09 PM CDT): Chronic, poorly controlled T12 fracture seen on recent CT scan Continue gabapentin Thyroid nodule 01/02/2024 Assessment & Plan (01/02/2024 4:10 PM CDT): New problem CT recommended F/U US however patient would like to wait for now TSH level today Pitting edema 09/29/2022 Assessment & Plan (01/02/2024 4:08 PM CDT): 1. Chronic, stable on current dose 2. Continue Lasix 3. CMP today Assessment & Plan (09/29/2022 1:15 PM CDT): 1. Chronic, poorly controlled 2. Unclear etiology with uncertain prognosis 3. Will continue current dose of furosemide for now and obtain echocardiogram Varicose veins of both lower extremities with pa in 09/29/2022 Assessment & Plan (09/29/2022 1:16 PM CDT): 1. Chronic, painful 2. Will refer to vascular surgery for further evaluation Class 1 obesity due to exces s calories without serious comorbidity with body mass index (BMI) of 33.0 to 33.9 in adult 09/29/2022 Assessment & Plan (01/02/2024 4:09 PM CDT): Chronic, poorly controlled however improving On RX from weight management Continue diet and exercise Colon cancer screening 09/29/2022 Resolved Problems Problem Noted Date Diagnosed Date Resolved Date Elevated antinuclear antibody (KORINA) level 07/26/2022 09/29/2022 Overview (08/15/2022): Labs 07/26/2022 AVISE: All negative including ANCA No proteinuria. CBC, CMP, CRP, and ESR wnl Xrays 08/09/2022 XR R foot - mild midfoot OA, moderate heel spur XR L foot - mild midfoot OA, small heel spur XR B hands - independent review of xrays is unremarkable, joint spaces maintained without evidence of spurring or erosions. Ultrasound 08/10/2022 US Right hand/wrist: 1) Mild synovial thickening of the dorsal wrist and 5th MCPJ 2) Moderate synovial thickening of the 2nd and 3rd PIPJ 3) Moderate spurring of the 1st CMC joint 4) Enlargement of the median nerve of 0.19 cm2 suggestive of carpal tunnel syndrome Assessment & Plan (08/15/2022 4:00 PM CDT): 47yoF presents for evaluation due to KORINA 1:80 and anasarca. She is concerned as her cousin had the same symptoms and was ultimately dx with RA. She denies inflammatory sounding joint pain. Notes hand pain, in her PIPs, exclusively when her hands are diffusely swollen. She has had hip and foot pain which have improved since taking methylprednisolone daily since May. The steroid and Lasix also improve the swelling, which interestingly is intermittent and generally worse in the morning. Denies any CTD symptoms. Exam does not reveal any synovitis or other notable finding. Our workup shows a negative KORINA as well as other more specific antibodies and normal inflammatory markers. Her xrays showed mild midfoot OA and heel spurs, otherwise unremarkable, and her hand US did not show active inflammatory arthritis. At this time there is not evidence to suggest any underlying rheumatologic diagnosis. She will continue follow up with her PCP and cardiology as planned. Assessment & Plan (07/26/2022 12:17 PM CDT): 47yoF presents for evaluation due to KORINA 1:80 and anasarca. She is concerned as her cousin had the same symptoms and was ultimately dx with RA. She denies inflammatory sounding joint pain. Notes hand pain, in her PIPs, exclusively when her hands are diffusely swollen. She has had hip and foot pain which have improved since taking methylprednisolone daily since May. The steroid and Lasix also improve the swelling, which interestingly is intermittent and generally worse in the morning. Denies any CTD symptoms. Exam today does not reveal any synovitis or other notable finding. Overall have a low suspicion for underlying rheumatologic diagnosis. To fully evaluate will check appropriate serologies, xrays, and ultrasound with plan for follow up in 2 weeks to review results. Immunizations Name Administration Dates Next Due Influenza, Trivalent, Preser vative Free, Intramuscular 01/02/2024 Influenza, Unspecified 12/28/2022(Deferr ed: Patient Refused),12/06/2021(Deferred: Patient Refused),01/12/2021(Deferred: Patient Refused) PPD TEST, PPD, MULTIPUNCTURE 07/02/2017 Pfizer SARS-CoV-2 Monovalent Vaccination (12+ Yrs) WILKINSON-READY TO USE 07/25/2021 Tdap 06/03/2013 Surgical History Surgery Date Site/Laterality Comments VEIN SURGERY Left leg- ablation KNEE ARTHROSCOPY Right x2 Medical History Medical History Date Comments Depression 2007 PONV (postoperative nausea and vomiting) Family History Medical History Relation Name Comments Crohn's disease Father's Brother COPD Maternal Grandfather Craven Cancer Maternal Grandfather Craven black lung Maternal Grandfather Craven Arthritis Maternal Grandmother Damari Depression Maternal Grandmother Damari Hypertension Maternal Grandmother Damari Memory loss Maternal Grandmother Damari Alzheimer's disease Mother's Brother Junior Diabetes Paternal Grandfather Rafi Hypertension Paternal Grandfather Rafi Prostate cancer Paternal Grandfather Rafi Stroke Paternal Grandfather Rafi Arthritis Paternal Grandmother Alma Hypertension Paternal Grandmother Alma Relation Name Status Comments Father's Brother Maternal Grandfather Craven Maternal Grandmother Damari Mother's Brother Junior Paternal Grandfather Rafi Paternal Grandmother Alma Social History Tobacco Use Types Packs/Day Years Used Date Smoking Tobacco: Some Days Cigarettes 0.1 34.1 Started: 1990 Passive Smoke Exposure: Yes Smokeless Tobacco: Never Tobacco Cessation:Ready to Q uit: Not Asked; Counseling Given: Not Answered Comments:Social if I have a cocktail AUDIT-C Answer Date Recorded Q1: How often do you have a drink containing alc ohol? 2-4 times a month 01/02/2024 Q2: How many drinks containi ng alcohol do you have on a typical day when you are drinking? 1 or 2 01/02/2024 Q3: How often do you have si x or more drinks on one occasion? Never 01/02/2024 PHQ-2 Answer Date Recorded PHQ-2 Total Score 0 01/02/2024 Personal Safety Answer Date Recorded Have you ever been in or are you currently in a harmful physical or emotional relationship or is someone making you feel afraid or unsafe? Denies 02/07/2023 Comments No Sex and Gender Information Value Date Recorded Sex Assigned at Not on file Legal Sex Female 2:39 PM CDT Gender Identity Female 09/28/2022 1:15 AM CDT Sexual Orientation Straight 09/28/2022 1: 15 AM CDT Obstetrics History Last Filed Vital Signs Vital Sign Reading Time Taken Comments Blood Pressure 128/82 01/02/2024 2:16 PM CDT Pulse 87 01/02/2024 2:16 PM CDT Temperature 36.7 C (98.1 F) 02/20/2023 7:27 AM CALENDER WIND UP HELPER Respiratory Rate 18 02/20/2023 9:25 AM CALENDER WIND UP HELPER Oxygen Saturation 97% 01/02/2024 2:16 PM CDT Inhaled Oxygen Concentration - - Weight 99.3 kg (219 lb) 01/02/2024 2:16 PM CDT Height 172.7 cm (5' 8 ) 01/02/2024 2:16 PM CDT Body Mass Index 33.3 01/02/2024 2:16 PM CDT Plan of Treatment Health Maintenance Due Date Last Done Comments Cervical Cancer Screening 1975 Pneumococcal vaccine <65 (1 of 2 - PCV) 01/19/1982 Breast Cancer Screening-Mammogram 03/21/2023 023 DTaP/Tdap/Td Vaccine (2 - Td or Tdap) 06/04/202303/2013 Covid-19 Vaccine ( season) 2023 07/25/2021, 04/23/2020, 04/02/2020 Depression Screening 01/01/2025 01/02/2024, 09/30/19 23 Regular Well Visit/Exam 18-64 01/01/2025 01/02/2024, 09/29/2022 Colon Cancer Screening-Colonoscopy 02/07/20332022 Hepatitis B Screening Completed 01/02/2024 Hepatitis C Screening Completed 01/02/2024 Influenza Vaccine Completed 01/02/2024 Procedures Procedure Name Priority Date/Time Associated Diagnosis Comments HEPATITIS C ANTIBODY Routine 01/02/2024 2:52 PM CDT Need for hepatitis C screening test COLONOSCOPY 02/07/2023 1:47 PM CALENDER WIND UP HELPER SCREENING MAMMOGRAM Schedule Routine, Read Routine (OP Routine) 03/21/2022 from Last 3 Months or Most Recently Relevant to Health Maintenance Results * Hepatitis C antibody Blood (01/02/2024 2:52 PM CDT) Hep C Ab Nonreactive Nonreactive Comment:Antibodies to HCV no t detected. Does NOT exclude the possibility of recent exposure to HCV. Current interpretive data was last revised on 21 Blood 01/02/2024 2:52 PM CDT 01/02/2024 6:34 PM CDT us Gwen Braxton VP GLOBAL LAB MICROBIOLOGY - GENERAL ORD ERABLES Final Result [facility] Department [place] [address] * COLONOSCOPY (02/07/2023 1:47 PM CALENDER WIND UP HELPER) Anatomical Region Laterality Modality Other Narrative Procedure Note Juma Baer MD PhD - 02/07/2023 1:47 PM [facility] Patient Name: Radha Palma Procedure Date: 02/07/2023 1:47 PM Date of : 1975 Admit Type: Outpatient Age: 48 Gender: Female Attending MD: Juma Baer MD,PHD Room: [facility] ENDOSCOPY [facility]OM 3 Note Status: Finalized Procedure: Colonoscopy Indications: Screening for colorectal malignant neoplasm. Last colonoscopy: 2002 (in setting of GI bleeding) Referring MD: Rizwan Forbes M.D. Providers: Juma Baer MD, PHD Comorbidities Current tobacco use Medicines: Monitored Anesthesia Care Complications: No immediate complications. Estimated Blood Loss: Estimated blood loss: none. Procedure: Pre-Anesthesia Assessment: - Immediately prior to administration ofmedications, the patient was re-assessed for adequacy to receive sedatives. - The risks and benefits of the procedure and the sedation options and risks were discussed with the patient. All questions were answered and informed consent was obtained. The benefits, risks and alternatives of theprocedure and sedation were discussed and informed consentwas obtained. All questions were answered. Please referto the signed informed consent document in the medical record. The scope was passed under direct vision.The [id number] endoscope was introduced through the anus and advanced to the cecum, identified by appendiceal orifice and ileocecal valve. The colonoscopy was performed without difficulty. The patient tolerated the procedure well. The qualityof the bowel preparation was evaluated using the BBPS ([place] Bowel Preparation Scale) with scores of:Right Colon = 3, Transverse Colon = 3 and Left Colon = 3 (entire mucosa seen well with no residual staining, small fragments of stool or opaque liquid). Thetotal BBPS score equals 9. The bowel preparation used was GoLYTELY via split dose instruction. The quality of the bowel preparation was excellent. AI Technologywas utilized during the procedure to aid in polyp detection. Findings: The perianal and digital rectal examinations were normal. The entire examined colon appeared normal on direct and retroflexion views. No masses or polyps were seen. Impression: - The entire examined colon is normal on direct and retroflexion views. - No specimens collected. Recommendation: - Repeat colonoscopy in 10 years for screening purposes. - Smoking cessation. Attending Participation: I personally performed the entire procedure. Electronically Signed By: Esther Baer MD Juma Baer MD, PHD 02/07/2023 2:26:39 PM . Number of Addenda: 0 Note Initiated On: 02/07/2023 1:47 PM Recognized by the [place] Society [employer]intestinal End[employer] for promoting quality in endoscopy Juma Baer MD PhD ENDOSCOPY PROCEDURES Final Result * Screening Mammogram (03/21/2022) Anatomical Region Laterality Modality Breast N/A Mammography Historical Provider MD [facility] MAMMO PROCEDURES Jackie l Result from Last 3 Months or Most Recently Relevant to Health [place] [address] [facility] [place] [address] [facility] [place] [address] [facility] CHOICE PLUS [facility] CHOICE PLUS Advance Directives For more information, please contact: [phone] * Full Code (Latest Code Status on File) Date Activated Date Inactivated Comments 02/07/2023 1:40 PM 02/07/2023 7:13 PM Care Teams Plumber Gasfitter Relationship Specialty Start Date End Date Rizwan Forbes MD [address] [place] [address] DR Martinez [address] [address] PCP - General Internal Medicine 09/25/22 Cole Christensen MD [address] [place] [address] Consulting Physician Rheumatology 06/23/22
--- OUTSIDE RECORDS SUMMARY | 2024-04-11 14:17 | XMS_ITS | Encounter Summary ---
Author Organization [facility] Address [address] [place] [address] Care Team Providers Care Hot Box Spotter Name Role Phone Ronaldo Christine MD Primary Care Provider Encounter Details Date Type Department Care Team (Late st Contact Info) Description 06/25/2008 Outpatient Historical HIS [facility] [place] [address] [address] [place] [id number] Social History Tobacco Use Types Packs/Day Years Used Date Smoking Tobacco: Never Assessed Comments Unknown Sex and Gender Information Value Date Recorded Sex Assigned at Not on file Legal Sex Female 3:00 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
--- OUTSIDE RECORDS SUMMARY | 2024-04-11 14:17 | XMS_ITS | Referral Summary ---
Author Organization [facility] Address [address] [place] [address] Care Team Providers Care Weigher And Grader Name Role Phone Cole Christensen MD Unavailable [phone] Rizwan Forbes MD Primary Care Provider [...] Yrs) WILKINSON-READY TO USE 07/25/2021 Tdap 06/03/2013 Social History Tobacco Use Types Packs/Day Years [...] Orientation Straight 09/28/2022 1: 15 AM CDT Last Filed Vital Signs Vital Sign Reading Time Taken Comments Blood Pressure 128/82 01/02/2024 2:16 PM CDT Pulse 87 01/02/2024 2:16 PM CDT Temperature 36.7 C (98.1 F) 02/20/2023 7:27 AM MASON LINER Respiratory Rate 18 02/20/2023 9:25 AM MASON LINER Oxygen Saturation 97% 01/02/2024 2:16 PM CDT Inhaled Oxygen Concentration - - Weight 99.3 kg (219 lb) 01/02/2024 2:16 PM CDT Height 172.7 cm (5' 8 ) 01/02/2024 2:16 PM CDT Body Mass Index 33.3 01/02/2024 2:16 PM CDT Plan of Treatment Not on file Procedures Procedure Name Priority Date/Time Associated Diagnosis Comments HEPATITIS C ANTIBODY Routine 01/02/2024 2:52 PM CDT Need for hepatitis C screening test COLONOSCOPY 02/07/2023 1:47 PM MASON LINER SCREENING MAMMOGRAM Schedule Routine, Read Routine (OP [...] 01/02/2024 6:34 PM CDT us Gwen Braxton ART INSTALLER LAB MICROBIOLOGY - GENERAL ORD ERABLES Final Result [facility] Department [place] [address] * COLONOSCOPY (02/07/2023 1:47 PM MASON LINER) Anatomical Region Laterality Modality Other Narrative Procedure Note Juma Baer MD PhD - 02/07/2023 1:47 PM [facility] Patient Name: Radha Palma Procedure Date: 02/07/2023 1:47 PM Date of : 1975 Admit Type: Outpatient Age: 48 Gender: Female Attending MD: Juma Baer MD,PHD Room: [facility] ENDOSCOPY ROOM 3 Note Status: Finalized Procedure: [...] The scope was passed under direct vision.The [id number] endoscope was introduced through the anus and advanced to the cecum, identified by appendiceal orifice and ileocecal valve. The colonoscopy was performed without difficulty. The patient tolerated the procedure well. The qualityof the bowel preparation was evaluated using the BBPS ([place] Bowel Preparation Scale) with scores of:Right Colon [...] On: 02/07/2023 1:47 PM Recognized by the [place] [employer] G[employer]intestinal [employer] for promoting quality in endoscopy Juma Baer MD PhD ENDOSCOPY PROCEDURES Final Result * Screening Mammogram (03/21/2022) Anatomical Region Laterality Modality Breast N/A Mammography Historical Provider IMG MAMMO PROCEDURES Jackie l Result from Last 3 Months or Most Recently Relevant to Health [place] [address] [facility] [place] [address] [facility] CHOICE PLUS [facility] Advance Directives For more information, please contact: [phone] * Full Code (Latest Code Status on File) Date Activated Date Inactivated Comments 02/07/2023 1:40 PM 02/07/2023 7:13 PM Care Teams Weigher And Grader Relationship Specialty Start Date End Date Rizwan Forbes MD [address] [place] [address] [place] [address] PCP - General Internal Medicine 09/25/22 Cole Christensen MD [place] [address] Consulting Physician Rheumatology 06/23/22
== END 2024-04-11 14:12 | disposition home or self-care (01) ==
LOC: ANHIMG 14:14
PROVIDERS: Visit Provider Obstetrics & Gynecology
DX: Z12.31 Encounter for screening mammogram for malignant neoplasm of breast (principal)
CPT/HCPCS: 77063; 77067